=== PATIENT | male | born 1945 | race Two or more races ===

== ENCOUNTER 2023-11-26 15:14 | Emergency (ER) | payer MEDICARE ==
[~2023-11-26] VITALS: Ht 175.3 cm; Wt 122.5 kg
[2023-11-26 16:19] VITALS: TEMP 97.9
[2023-11-26] MEDS ORDERED: ACETAMINOPHEN 325 MG TABLET ONE (19:54)
[2023-11-26] MEDS: ACETAMINOPHEN 325 MG TABLET PO ONE ×2 (19:58)
[2023-11-26 19:59] VITALS: BP 129/77; O2SAT 97
== END 2023-11-26 20:00 | disposition home or self-care (01) ==
LOC: ER 15:27
DX: S16.1XXA Strain of muscle, fascia and tendon at neck level, initial encounter (principal); S09.8XXA Other specified injuries of head, initial encounter; I10 Essential (primary) hypertension; I48.91 Unspecified atrial fibrillation; Z60.2 Problems related to living alone; W18.39XA Other fall on same level, initial encounter; Y93.89 Activity, other specified; Y92.89 Other specified places as the place of occurrence of the external cause; Y99.8 Other external cause status
CPT/HCPCS: 70450-TC; 72125-TC